=== PATIENT | female | born 1980 | race Caucasian/White ===

== ENCOUNTER 2016-08-05 23:06 | Outpatient (CLI) | payer OTHER | END 2016-08-06 00:54 | disposition home or self-care (01) | LOC: GENOP 23:06 | DX: O47.1 False labor at or after 37 completed weeks of gestation (principal); Z3A.37 37 weeks gestation of pregnancy | CPT/HCPCS: 81001; 83518; G0463 ==

== ENCOUNTER 2016-08-07 20:19 | Outpatient (CLI) | payer OTHER | END 2016-08-07 21:21 | disposition home or self-care (01) | LOC: GENOP 20:19 | DX: O42.92 Full-term premature rupture of membranes, unspecified as to length of time between rupture and onset of labor (principal); Z3A.38 38 weeks gestation of pregnancy | CPT/HCPCS: 81001; 83518; G0463 ==

== ENCOUNTER 2016-08-23 05:56 | Inpatient (IN) | payer OTHER ==
[~2016-08-23] VITALS: Ht 172.7 cm; Wt 82.6 kg
[2016-08-23 07:21] LABS: HEMOGLOBIN 10.3 gm/dl (12.3-15.3); RED BLOOD COUNT 3.81 M/UL (4.00-5.10); WHITE BLOOD COUNT 10.2 K/UL (4.5-11.0)
[2016-08-24 02:46] LABS: HEMOGLOBIN 9.1 gm/dl (12.3-15.3)
[2016-08-25] MEDS ORDERED: COLACE100 MG PO (12:22)
[2016-08-25] MEDS ORDERED: NORCO 10-325 T1 EACH PO (12:22)
[2016-08-25] MEDS ORDERED: PRAMET FA TAB1 EA PO (12:23)
== END 2016-08-25 14:49 | disposition home or self-care (01) | DRG 766 ==
LOC: GENOP 05:56 → OB 06:38
PROVIDERS: ADMIT Obstetrics & Gynecology
PROC: 10D00Z1 Extraction of Products of Conception, Low, Open Approach (ICD-10-PCS; principal; 2016-08-24)
PROC: 3E0234Z Introduction of Serum, Toxoid and Vaccine into Muscle, Percutaneous Approach (ICD-10-PCS; 2016-08-24)
DX: O34.211 Maternal care for low transverse scar from previous cesarean delivery (principal); O42.02 Full-term premature rupture of membranes, onset of labor within 24 hours of rupture; Z3A.39 39 weeks gestation of pregnancy; Z37.0 Single live birth; Z23 Encounter for immunization
CPT/HCPCS: 36415; 80307; 82800; 85014; 85018; 85025; 85461; 86850; 86900; 86901; 90715; C9113; J1580; J2274; J2300; J2405; J2550; J2590; J2765; J3010; J7050; J7120

== ENCOUNTER 2020-08-20 00:34 | Emergency (ER) | payer OTHER ==
[~2020-08-20 00:34] MED LIST: COLACE 100MG C100 MG PO; COLACE100 MG PO; FEOSOL325 MG PO; NAPROSYN500 MG PO; NORCO 10-325 T1 EACH PO; NORCO 5-325 TA1 EACH PO; PRAMET FA TAB1 EA PO; PREVACID15 M1 PO; ZANTAC150 MG PO
[2020-08-20 02:11] LABS: HEMOGLOBIN 11.2 gm/dl (12.3-15.3); RED BLOOD COUNT 3.79 M/UL (4.00-5.10); WHITE BLOOD COUNT 6.6 K/UL (4.5-11.0)
[2020-08-20 02:29] LABS: BUN/CREATININE RATIO 21 (0-10)
[2020-08-20] MEDS ORDERED: LODINE CAP 300300 MG PO (04:11)
[2020-08-20] MEDS ORDERED: CEPHALEXIN500 MG PO (04:11)
== END 2020-08-20 04:50 | disposition home or self-care (01) ==
LOC: ER1 00:34
PROVIDERS: Physician Assistant
DX: L03.113 Cellulitis of right upper limb (principal); F17.290 Nicotine dependence, other tobacco product, uncomplicated; Z90.49 Acquired absence of other specified parts of digestive tract; Z88.0 Allergy status to penicillin; Z88.6 Allergy status to analgesic agent
CPT/HCPCS: 80053; 83605; 85025; 85652; 86140; 87040; 96372; 99283; J0696

== ENCOUNTER 2020-12-11 20:27 | Emergency (ER) | payer OTHER ==
[~2020-12-11 20:27] MED LIST changes: +CEPHALEXIN500 MG PO; +LODINE CAP 300300 MG PO
== END 2020-12-11 21:50 | disposition home or self-care (01) ==
LOC: ER1 20:27
DX: S10.93XA Contusion of unspecified part of neck, initial encounter (principal); R20.2 Paresthesia of skin; Z88.6 Allergy status to analgesic agent; Z88.0 Allergy status to penicillin; F17.290 Nicotine dependence, other tobacco product, uncomplicated; Y08.89XA Assault by other specified means, initial encounter
CPT/HCPCS: 70450; 72125; 99284

== ENCOUNTER 2021-05-30 22:39 | Emergency (ER) | payer OTHER ==
[2021-05-31] MEDS ORDERED: IMITREX50 MG PO (00:11)
[2021-05-31] MEDS ORDERED: ONDANSETRON ODT4 MG SL (00:11)
== END 2021-05-31 01:22 | disposition home or self-care (01) ==
LOC: ER1 22:39
DX: G43.909 Migraine, unspecified, not intractable, without status migrainosus (principal); Z88.0 Allergy status to penicillin; Z88.8 Allergy status to other drugs, medicaments and biological substances
CPT/HCPCS: 96374; 96375; 99284; J1200; J1885; J2765

== ENCOUNTER 2022-01-06 23:06 | Emergency (ER) | payer OTHER ==
[~2022-01-06 23:06] MED LIST changes: +IMITREX50 MG PO; +ONDANSETRON ODT4 MG SL
[2022-01-07] MEDS ORDERED: IMITREX25 MG PO (02:24)
== END 2022-01-07 02:45 | disposition home or self-care (01) ==
LOC: ER1 23:06
DX: G43.909 Migraine, unspecified, not intractable, without status migrainosus (principal); Z88.0 Allergy status to penicillin; Z88.6 Allergy status to analgesic agent
CPT/HCPCS: 96374; 96375; 99283; J1200; J1885; J2765